=== PATIENT | male | born 1975 | race Caucasian/White ===

== ENCOUNTER 2017-03-01 13:24 | Emergency (ER) | payer MEDICAID ==
[~2017-03-01] VITALS: Ht 185.4 cm; Wt 100.0 kg
[~2017-03-01 13:24] MED LIST: CHLO.12%30 SSP; DOXY100T PO; IBUP800T23 PO; METR250 PO; PENI500T PO
[2017-03-01 13:27] VITALS: BP 129/79; PULSE 80; RESP 20; TEMP 98.9; O2SAT 97
--- NOTE | 2017-03-01 14:35 | PD ---
HPI Chief Complaint: Psychiatric Symptoms Time Seen by Provider: 14:30 Travel History International Travel<30 days: No Contact w/Intl Traveler<30days: No Traveled to known affect area: No History of Present Illness HPI 41-year-old male that presents to the ED for evaluation of momentary psych evaluation. Per patient she's been dealing with depression for the past 2-3 months. Per patient he recently lost his mom and dad. Per patient his been hard on him. He feels depressed and anhedonic. Per patient she feels like his out of his body and watching his life go along. The patient's symptoms seem to get better at night but during the day is hard for him to get up. He denies any drugs or alcohol. He does state that he has a history of depression in the past and last time he used to be on medications but he has not taken anything since 2002. He has no psychiatrist. He comes here voluntarily to get help. Patient has right next to him. Denies suicidal or homicidal ideation. PFSH Past Medical History Bipolar Disorder: Yes Anxiety: Yes Depression: Yes Diminished Hearing: No Musculoskeletal: Yes (RIGHT SHOULDER DISLOCATION, left hip fracture) Psychiatric: Yes (DEPRESSION) Social History Alcohol Use: Yes (DAILY) Tobacco Use: Yes (1PPD) Substance Use: No Allergies-Medications (Allergen,Severity, Reaction): Coded Allergies: No Known Allergies (Verified , 03/01/17) Reported Meds & Prescriptions Reported Meds & Active Scripts Active Peridex Oral Rinse (Chlorhexidine Gluconate) 0.12 % Kait 15 Ml SSP BID 10 Days Ibuprofen 800 Mg Tab 800 Mg PO Q8 PRN Pen Vk (Penicillin V Potassium) 500 Mg Tab 500 Mg PO QID Flagyl (Metronidazole) 250 Mg Tab 250 Mg PO TID Vibramycin (Doxycycline Hyclate) 100 Mg Cap 100 Mg PO BID Vibramycin (Doxycycline Hyclate) 100 Mg Cap 100 Mg PO BID Review of Systems Except as stated in HPI: all other systems reviewed are Neg Physical Exam Narrative GENERAL: SKIN: Warm and dry. HEAD: Atraumatic. Normocephalic. EYES: Pupils equal and round. No scleral icterus. No injection or drainage. ENT: No nasal bleeding or discharge. Mucous membranes pink and moist. Tongue is midline. No uvula deviation. NECK: Trachea midline. No JVD. CARDIOVASCULAR: Regular rate and rhythm. No murmurs, S3, S4. RESPIRATORY: No accessory muscle use. Clear to auscultation. Breath sounds equal bilaterally. GASTROINTESTINAL: Abdomen soft, non-tender, nondistended. Hepatic and splenic margins not palpable. MUSCULOSKELETAL: Extremities without clubbing, cyanosis, or edema. No obvious deformities. Full range of motion of the upper and lower external his bilaterally. 2+ pulses bilaterally. NEUROLOGICAL: Awake and alert. No obvious cranial nerve deficits. Motor grossly within normal limits. Five out of 5 muscle strength in the arms and legs. Normal speech. PSYCHIATRIC: Depressed mood and affect; insight and judgment normal. Data Data Last Documented VS Vital Signs Date Time Temp Pulse Resp B/P Pulse Ox O2 Delivery O2 Flow Rate FiO2 03/01/17 13:27 98.9 80 20 129/79 97 Room Air Orders Complete Blood Count With Diff (03/01/17 13:34) Comprehensive Metabolic Panel (03/01/17 13:34) Psych Screen (03/01/17 13:34) Drug Screen, Random Urine (03/01/17 13:34) Alcohol (Ethanol) (03/01/17 13:34) MDM Medical Decision Making Medical Screen Exam Complete: Yes Emergency Medical Condition: Yes Medical Record Reviewed: Yes Differential Diagnosis Depression versus suicidal ideation versus anxiety versus adjustment disorder versus mood disorder versus bipolar disorder versus schizophrenia versus paranoid disorder versus psychosis versus substance abuse versus alcohol abuse versus alcohol induced psychosis versus homicidality addition versus cutting versus personality disorder Narrative Course 41-year-old male that presents to the ED for evaluation of psychiatric evaluation. Patient was properly examined and was found to have signs and symptoms consistent with significant illness. Patient is here voluntarily and wants help for his depression. At this time labs will be drawn. Patient was medically clear. Okay to be seen by psych. Mental health screening was discussed with the patient. Diagnosis Primary Impression: Depression Qualified Code: F33.1 - Moderate episode of recurrent major depressive disorder Colt Mari Mar 01, 2017 14:35
[2017-03-01 14:42] LABS: AUTOMATED NEUTROPHIL # 4.7 TH/MM3 (1.8-7.7); BASOPHIL # 0.1 TH/MM3 (0-0.2); BASOPHIL % 0.8 % (0.0-2.0); EOSINOPHIL # 0.1 TH/MM3 (0-0.4); EOSINOPHIL % 0.9 % (0.0-4.0); HEMATOCRIT 37.6 % (39.0-51.0); HEMO FLAGS DIFF FINAL; LYMPH % 41.1 % (9.0-44.0); LYMPHOCYTE # 4.1 TH/MM3 (1.0-4.8); MEAN CELL VOLUME 87.4 FL (80.0-100.0); MEAN CORPUSCULAR HEMOGLOBIN 29.7 PG (27.0-34.0); NEUT % 48.2 % (16.0-70.0); PLATELET COUNT 205 TH/MM3 (150-450); RED CELL DISTRIBUTION WIDTH 14.1 % (11.6-17.2); WHITE BLOOD COUNT 9.9 TH/MM3 (4.0-11.0)
[2017-03-01 14:44] LABS: AMPHETAMINE, URINE NEG (NEG); BARBITURATES, URINE NEG (NEG); COCAINE, URINE NEG (NEG)
[2017-03-01 15:34] LABS: ALT (GPT) 27 U/L (12-78); ANION GAP 6 MEQ/L (5-15); AST (GOT) 17 U/L (15-37); BICARBONATE 26.2 MEQ/L (21.0-32.0); BLOOD UREA NITROGEN 15 MG/DL (7-18); CHLORIDE 110 MEQ/L (98-107); GLOMERULAR FILTRATION RATE 101 ML/MIN (>89); POTASSIUM 4.4 MEQ/L (3.5-5.1); SODIUM (NA) 142 MEQ/L (136-145)
[2017-03-01 15:36] LABS: ALKALINE PHOSPHATASE 89 U/L (45-117); TOTAL BILIRUBIN ADULT 0.4 MG/DL (0.2-1.0)
[2017-03-01 16:00] VITALS: BP 144/95; PULSE 75; RESP 16; TEMP 97.3; O2SAT 97
[2017-03-01 16:52] VITALS: BP 144/95; TEMP 98
== END 2017-03-01 16:55 | disposition home or self-care (01) ==
LOC: NEPD 13:24 → NEPJ 16:55
DX: F32.9 Major depressive disorder, single episode, unspecified (principal); F31.9 Bipolar disorder, unspecified; F41.9 Anxiety disorder, unspecified; F17.200 Nicotine dependence, unspecified, uncomplicated; Z79.899 Other long term (current) drug therapy
CPT/HCPCS: 80053; 80307; 85025; 99283

== ENCOUNTER 2017-07-16 11:41 | Emergency (ER) | payer MEDICAID, OTHER ==
[~2017-07-16] VITALS: Ht 185.4 cm; Wt 87.0 kg
[~2017-07-16 11:41] MED LIST changes: -CHLO.12%30 SSP; -DOXY100T PO; -IBUP800T23 PO; -METR250 PO; +NAPR-810 PO; -PENI500T PO; +ZYPR10TA PO
[2017-07-16 11:42] VITALS: BP 133/72; PULSE 81; RESP 20; TEMP 98.9; O2SAT 99
[2017-07-16] MEDS ORDERED: LORA1TAB12 PO (11:56)
[2017-07-16] MEDS ORDERED: SODIUM CHLOR 0.9% 1000 ML INJ 1,000 ML IV SCH (12:02)
[2017-07-16] MEDS ORDERED: ONDANSETRON HCL 4 MG/2 ML VIAL IVP ONE (12:15)
[2017-07-16] MEDS ORDERED: MORPHINE SULFATE 4 MG/ML INJ IV PUSH ONE (12:15)
[2017-07-16] MEDS ORDERED: SODIUM CHLORIDE 0.9% FLUSH 10 ML FLUSH IV FLUSH PRN (12:15)
[2017-07-16] MEDS ORDERED: FAMOTIDINE 20 MG/2 ML VIAL IV PUSH ONE (12:15)
[2017-07-16] MEDS ORDERED: PANTOPRAZOLE SODIUM 40 MG VIAL IVP ONE (12:15)
[2017-07-16 12:35] LABS: AUTOMATED NEUTROPHIL # 4.8 TH/MM3 (1.8-7.7); BASOPHIL % 0.4 % (0.0-2.0); EOSINOPHIL # 0.1 TH/MM3 (0-0.4); EOSINOPHIL % 0.8 % (0.0-4.0); HEMATOCRIT 38.6 % (39.0-51.0); HEMO FLAGS DIFF FINAL; LYMPH % 40.5 % (9.0-44.0); LYMPHOCYTE # 3.9 TH/MM3 (1.0-4.8); MEAN CELL VOLUME 87.7 FL (80.0-100.0); MEAN CORPUSCULAR HEMOGLOBIN 30.7 PG (27.0-34.0); MONO % 8.7 % (0.0-8.0); NEUT % 49.6 % (16.0-70.0); PLATELET COUNT 202 TH/MM3 (150-450); WHITE BLOOD COUNT 9.7 TH/MM3 (4.0-11.0)
--- NOTE | 2017-07-16 12:41 | PD ---
HPI Chief Complaint: GI Complaint Time Seen by Provider: 11:52 Travel History International Travel<30 days: No Contact w/Intl Traveler<30days: No Traveled to known affect area: No History of Present Illness HPI 41-year-old male that presents to the ED for evaluation of possible diverticulitis. Patient has a history of diverticulitis in the past and states that he was diagnosed as so about 2 months ago for Hospital. Per patient his been there twice since and states that he is not improved. Patient last took and dry, month ago. He continues to have sensation that he has to go and have a bowel movement but he does not. If he does he does have bloody stool. He denies any chest pain or shortness of breath. He states that he feels weak and anxious. He is not eating or drinking much per family member. He has not seen anybody else out of the hospital as he has no primary care doctor. He states that the pain is 10 out of 10and the lower abdomen and radiates to the back. He denies any numbness, tilling, weakness. No injuries. No history of IV drug abuse. Nothing seems to make it better. Denies any fevers chills or sweats. No chest pain or shortness of breath. Other medical issues at this time. PFSH Past Medical History Bipolar Disorder: Yes Anxiety: Yes Depression: Yes Diminished Hearing: No Musculoskeletal: Yes (RIGHT SHOULDER DISLOCATION, left hip fracture) Psychiatric: Yes (DEPRESSION) Social History Alcohol Use: No Tobacco Use: No Substance Use: No Allergies-Medications (Allergen,Severity, Reaction): Coded Allergies: No Known Allergies (Verified Allergy, Unknown, 07/16/17) Reported Meds & Prescriptions Reported Meds & Active Scripts Active Protonix (Pantoprazole Sodium) 40 Mg Tab 40 Mg PO DAILY Cipro Liq (Ciprofloxacin) 500 Mg/5 Ml Susp 500 Mg PO BID 10 Days Metronidazole 500 Mg Tab 500 Mg PO BID 10 Days Reported Lorazepam 1 Mg Tab 1 Mg PO BID PRN Review of Systems Except as stated in HPI: all other systems reviewed are Neg Physical Exam Narrative GENERAL: SKIN: Warm and dry. HEAD: Atraumatic. Normocephalic. EYES: Pupils equal and round. No scleral icterus. No injection or drainage. ENT: No nasal bleeding or discharge. Mucous membranes pink and moist. Tongue is midline. No uvula deviation. NECK: Trachea midline. No JVD. CARDIOVASCULAR: Regular rate and rhythm. No murmurs, S3, S4. RESPIRATORY: No accessory muscle use. Clear to auscultation. Breath sounds equal bilaterally. GASTROINTESTINAL: Abdomen soft, tender to palpation on the left lower quadrant, nondistended. Hepatic and splenic margins not palpable. MUSCULOSKELETAL: Extremities without clubbing, cyanosis, or edema. No obvious deformities. Full range of motion of the upper and lower extremities bilaterally. 2+ pulses bilaterally. NEUROLOGICAL: Awake and alert. No obvious cranial nerve deficits. Motor grossly within normal limits. Five out of 5 muscle strength in the arms and legs. Normal speech. PSYCHIATRIC: Appropriate mood and affect; insight and judgment normal. Data Data Last Documented VS Vital Signs Date Time Temp Pulse Resp B/P (MAP) Pulse Ox O2 Delivery O2 Flow Rate FiO2 07/16/17 11:42 98.9 81 20 133/72 (92) 99 Room Air Orders Orders Complete Blood Count With Diff (07/16/17 12:02) Comprehensive Metabolic Panel (07/16/17 12:02) Lipase (07/16/17 12:02) Prothrombin Time / Inr (Pt) (07/16/17 12:02) Act Partial Throm Time (Ptt) (07/16/17 12:02) Urinalysis - C+S If Indicated (07/16/17 12:02) Iv Access Insert/Monitor (07/16/17 12:02) Ecg Monitoring (07/16/17 12:02) Morphine Inj (Morphine Inj) (07/16/17 12:15) Ondansetron Inj (Zofran Inj) (07/16/17 12:15) Pantoprazole Inj (Protonix Inj) (07/16/17 12:15) Sodium Chlor 0.9% 1000 Ml Inj (Ns 1000 M (07/16/17 12:02) Sodium Chloride 0.9% Flush (Ns Flush) (07/16/17 12:15) Famotidine Inj (Pepcid Inj) (07/16/17 12:15) Ct Abd/Pel W Iv Contrast(Rout) (07/16/17 ) Iohexol 350 Inj (Omnipaque 350 Inj) (07/16/17 13:51) Ed Discharge Order (07/16/17 14:39) Labs Laboratory Tests Test 07/16/17 12:08 07/16/17 12:55 White Blood Count 9.7 TH/MM3 Red Blood Count 4.40 MIL/MM3 Hemoglobin 13.5 GM/DL Hematocrit 38.6 % Mean Corpuscular Volume 87.7 FL Mean Corpuscular Hemoglobin 30.7 PG Mean Corpuscular Hemoglobin Concent 35.0 % Red Cell Distribution Width 13.0 % Platelet Count 202 TH/MM3 Mean Platelet Volume 8.0 FL Neutrophils (%) (Auto) 49.6 % Lymphocytes (%) (Auto) 40.5 % Monocytes (%) (Auto) 8.7 % Eosinophils (%) (Auto) 0.8 % Basophils (%) (Auto) 0.4 % Neutrophils # (Auto) 4.8 TH/MM3 Lymphocytes # (Auto) 3.9 TH/MM3 Monocytes # (Auto) 0.8 TH/MM3 Eosinophils # (Auto) 0.1 TH/MM3 Basophils # (Auto) 0.0 TH/MM3 CBC Comment DIFF FINAL Differential Comment Prothrombin Time 10.9 SEC Prothromb Time International Ratio 1.1 RATIO Activated Partial Thromboplast Time 28.3 SEC Blood Urea Nitrogen 13 MG/DL Creatinine 0.95 MG/DL Random Glucose 101 MG/DL Total Protein 8.5 GM/DL Albumin 4.1 GM/DL Calcium Level 9.5 MG/DL Alkaline Phosphatase 107 U/L Aspartate Amino Transf (AST/SGOT) 14 U/L Alanine Aminotransferase (ALT/SGPT) 26 U/L Total Bilirubin 0.8 MG/DL Sodium Level 140 MEQ/L Potassium Level 4.0 MEQ/L Chloride Level 110 MEQ/L Carbon Dioxide Level 22.3 MEQ/L Anion Gap 8 MEQ/L Estimat Glomerular Filtration Rate 87 ML/MIN Lipase 101 U/L Urine Color YELLOW Urine Turbidity HAZY Urine pH 5.0 Urine Specific [place] 1.031 Urine Protein TRACE mg/dL Urine Glucose (UA) NEG mg/dL Urine Ketones NEG mg/dL Urine Occult Blood NEG Urine Nitrite NEG Urine Bilirubin NEG Urine Urobilinogen LESS THAN 2.0 MG/DL Urine Leukocyte Esterase NEG Urine RBC 1 /hpf Urine WBC 4 /hpf Urine Amorphous Sediment OCC Urine Mucus FEW /lpf Microscopic Urinalysis Comment CULT NOT INDICATED MDM Medical Decision Making Medical Screen Exam Complete: Yes Emergency Medical Condition: Yes Medical Record Reviewed: Yes Interpretation(s) CBC & BMP Diagram 07/16/17 12:08 Total Protein 8.5 H, Albumin 4.1, Calcium Level 9.5, Alkaline Phosphatase 107, Aspartate Amino Transf (AST/SGOT) 14 L, Alanine Aminotransferase (ALT/SGPT) 26, Total Bilirubin 0.8 UA negative coags WNL Last Impressions Abdomen/Pelvis CT 07/16/17 0000 Signed Impressions: Service Date/Time: Sunday, July 16, 2017 13:37 - CONCLUSION: 1. The above findings are diagnostic of a mild acute diverticulitis involving the proximal sigmoid colon. No abscess, free air, or free fluid is present. 2. Possible gallstones. Néstor Presley MD Differential Diagnosis Abdominal pain versus diverticulitis versus colitis versus C. difficile versus GI bleed versus acute on chronic Narrative Course 41-year-old male that presents to the ED for evaluation of possible diverticulitis. Patient was properly examined and was found to have signs and symptoms which appear to be consistent with likely diverticulitis. Labs and imaging were ordered. Imaging was ordered to rule out any sign of acute surgical emergency as patient continues to have symptoms and bleeding. Labs and imaging consistent with mild diverticulitis but no sign of acute surgical emergency. My attending Dr Ross evaluated the patient and agrees with plan. Patient requested liquid meds. patient will be started on flagyl, cipro andprotonix. Told to follow up with GI outpatient. See ED if worst. Diagnosis Primary Impression: Diverticulitis Patient Instructions: General Instructions, Narcotic given in the ED Additional Instructions: Take medication as prescribed. Liquid diet until better. Follow with PCP. See ED worsening symptoms. Med/Other Pt SpecificInfo: Prescription(s) given Scripts Pantoprazole (Protonix) 40 Mg Tab 40 MG PO DAILY for Reflux, #30 TAB 0 Refills Prov: Florian Ross MD 07/16/17 Ciprofloxacin Liq (Cipro Liq) 500 Mg/5 Ml Susp 500 MG PO BID for Infection for 10 Days, #100 ML 0 Refills Prov: Florian Ross MD 07/16/17 Metronidazole (Metronidazole) 500 Mg Tab 500 MG PO BID for Infection for 10 Days, #20 TAB 0 Refills Prov: Florian Ross MD 07/16/17 Disposition: 01 DISCHARGE HOME Condition: Stable Colt Mari Jul 16, 2017 12:41
[2017-07-16 12:48] LABS: APTT (PATIENT) 28.3 SEC (24.3-30.1); INTERNATIONAL NORMALIZED RATIO 1.1 RATIO; PROTHROMBIN TIME - PATIENT 10.9 SEC (9.8-11.6)
[2017-07-16 12:56] LABS: ANION GAP 8 MEQ/L (5-15); AST (GOT) 14 U/L (15-37); BICARBONATE 22.3 MEQ/L (21.0-32.0); BLOOD UREA NITROGEN 13 MG/DL (7-18); CHLORIDE 110 MEQ/L (98-107); GLOMERULAR FILTRATION RATE 87 ML/MIN (>89); SODIUM (NA) 140 MEQ/L (136-145)
[2017-07-16 12:59] LABS: ALKALINE PHOSPHATASE 107 U/L (45-117); ALT (GPT) 26 U/L (12-78); TOTAL BILIRUBIN ADULT 0.8 MG/DL (0.2-1.0)
[2017-07-16 13:15] LABS: BLOOD, URINE NEG (NEG); COMMENT (UR) CULT NOT INDICATED; CULTURE IF INDICATED CULT NOT INDICATED; GLUCOSE,URINE NEG (NEG); KETONE, URINE NEG (NEG); MUCUS URINE FEW /lpf (OCC); NITRITE,URINE NEG (NEG); URINE COLOR YELLOW (YELLW/STRAW)
[2017-07-16] MEDS ORDERED: IOHEXOL 350 MG/ML 10 ML VIAL (for RAD DIAG) IVCONTRAST ONE (13:51)
--- NOTE | 2017-07-16 14:14 | RADRPT ---
EXAM DATE/TIME: 07/16/2017 13:37 [facility] COMPARISON: No previous studies available for comparison. INDICATIONS : Constipation for two months, lower abdominal pain, blood in stool. IV CONTRAST: 67 cc Omnipaque 350 (iohexol) IV ORAL CONTRAST: No oral contrast ingested. RADIATION DOSE: 9.71 CTDIvol (mGy) MEDICAL HISTORY : Diverticulitis. SURGICAL HISTORY : None. ENCOUNTER: Initial ACUITY: 1 day PAIN SCALE: 6/10 LOCATION: abdomen TECHNIQUE: Volumetric scanning of the abdomen and pelvis was performed. Using automated exposure control and ad justment of the mA and/or kV according to patient size, radiation dose was kept as low as reasonably achievable to obtain optimal diagnostic quality images. DICOM format image data is available electro nically for review and comparison. FINDINGS: LOWER LUNGS: The visualized lower lungs are clear. LIVER: Homogeneous density without lesion. There is no dilation of the biliary tree. There is heterogeneou s density within the gallbladder lumen suggesting that noncalcified stones may be present. SPLEEN: Normal size without lesion. PANCREAS: Within normal limits. KIDNEYS: Normal in size and shape. There is no mass, stone or hydronephrosis. ADRENAL GLANDS: Within normal limits. VASCULAR: There is no aortic aneurysm. BOWEL/MESENTERY: The stomach and small bowel demonstrate no acute abnormality. There is no free intraperitoneal air o r fluid. Sigmoid diverticulosis is present and there is mild wall thickening and pericolonic inflamma tory change surrounding a short segment of proximal sigmoid colon. ABDOMINAL WALL: Within normal limits. RETROPERITONEUM: There is no lymphadenopathy. BLADDER: No wall thickening or mass. REPRODUCTIVE: Within normal limits. INGUINAL: There is no lymphadenopathy or hernia. MUSCULOSKELETAL: No acute abnormality. CONCLUSION: 1. The above findings are diagnostic of a mild acute diverticulitis involving the proximal sigmoid co isaac. No abscess, free air, or free fluid is present. 2. Possible gallstones. Néstor Presley MD on July 16, 2017 at 14:09 Board Certified Radiologist. This report was verified electronically.
[2017-07-16] MEDS ORDERED: CIPR500S2 PO (14:39)
[2017-07-16] MEDS ORDERED: METR1TAB76 PO (14:39)
[2017-07-16] MEDS ORDERED: PROT40TA PO (14:39)
[2017-07-16] MEDS ORDERED: VIST50CA PO (14:56)
--- NOTE | 2017-07-16 14:56 | PD ---
Data Data Last Documented VS Vital Signs Date Time Temp Pulse Resp B/P (MAP) Pulse Ox O2 Delivery O2 Flow Rate FiO2 07/16/17 11:42 98.9 81 20 133/72 (92) 99 Room Air Orders Orders Complete Blood Count With Diff (07/16/17 12:02) Comprehensive Metabolic Panel (07/16/17 12:02) Lipase (07/16/17 12:02) Prothrombin Time / Inr (Pt) (07/16/17 12:02) Act Partial Throm Time (Ptt) (07/16/17 12:02) Urinalysis - C+S If Indicated (07/16/17 12:02) Iv Access Insert/Monitor (07/16/17 12:02) Ecg Monitoring (07/16/17 12:02) Morphine Inj (Morphine Inj) (07/16/17 12:15) Ondansetron Inj (Zofran Inj) (07/16/17 12:15) Pantoprazole Inj (Protonix Inj) (07/16/17 12:15) Sodium Chlor 0.9% 1000 Ml Inj (Ns 1000 M (07/16/17 12:02) Sodium Chloride 0.9% Flush (Ns Flush) (07/16/17 12:15) Famotidine Inj (Pepcid Inj) (07/16/17 12:15) Ct Abd/Pel W Iv Contrast(Rout) (07/16/17 ) Iohexol 350 Inj (Omnipaque 350 Inj) (07/16/17 13:51) Ed Discharge Order (07/16/17 14:39) Labs Laboratory Tests Test 07/16/17 12:08 07/16/17 12:55 White Blood Count 9.7 TH/MM3 Red Blood Count 4.40 MIL/MM3 Hemoglobin 13.5 GM/DL Hematocrit 38.6 % Mean Corpuscular Volume 87.7 FL Mean Corpuscular Hemoglobin 30.7 PG Mean Corpuscular Hemoglobin Concent 35.0 % Red Cell Distribution Width 13.0 % Platelet Count 202 TH/MM3 Mean Platelet Volume 8.0 FL Neutrophils (%) (Auto) 49.6 % Lymphocytes (%) (Auto) 40.5 % Monocytes (%) (Auto) 8.7 % Eosinophils (%) (Auto) 0.8 % Basophils (%) (Auto) 0.4 % Neutrophils # (Auto) 4.8 TH/MM3 Lymphocytes # (Auto) 3.9 TH/MM3 Monocytes # (Auto) 0.8 TH/MM3 Eosinophils # (Auto) 0.1 TH/MM3 Basophils # (Auto) 0.0 TH/MM3 CBC Comment DIFF FINAL Differential Comment Prothrombin Time 10.9 SEC Prothromb Time International Ratio 1.1 RATIO Activated Partial Thromboplast Time 28.3 SEC Blood Urea Nitrogen 13 MG/DL Creatinine 0.95 MG/DL Random Glucose 101 MG/DL Total Protein 8.5 GM/DL Albumin 4.1 GM/DL Calcium Level 9.5 MG/DL Alkaline Phosphatase 107 U/L Aspartate Amino Transf (AST/SGOT) 14 U/L Alanine Aminotransferase (ALT/SGPT) 26 U/L Total Bilirubin 0.8 MG/DL Sodium Level 140 MEQ/L Potassium Level 4.0 MEQ/L Chloride Level 110 MEQ/L Carbon Dioxide Level 22.3 MEQ/L Anion Gap 8 MEQ/L Estimat Glomerular Filtration Rate 87 ML/MIN Lipase 101 U/L Urine Color YELLOW Urine Turbidity HAZY Urine pH 5.0 Urine Specific [place] 1.031 Urine Protein TRACE mg/dL Urine Glucose (UA) NEG mg/dL Urine Ketones NEG mg/dL Urine Occult Blood NEG Urine Nitrite NEG Urine Bilirubin NEG Urine Urobilinogen LESS THAN 2.0 MG/DL Urine Leukocyte Esterase NEG Urine RBC 1 /hpf Urine WBC 4 /hpf Urine Amorphous Sediment OCC Urine Mucus FEW /lpf Microscopic Urinalysis Comment CULT NOT INDICATED MDM Supervised Visit with JAVED: Yes Narrative Course The history, exam, and medical decision-making in the associated mid-level provider note were completed with my assistance. I reviewed and agree with the findings presented. I attest that I had a [id number] encounter with the patient on the same day, and personally performed and documented my assessment and findings in the medical record. *My assessment and Findings: 40-year-old man, recent episode of diverticulitis, here with ongoing abdominal pain and some tenderness. Looks overall well. Some stool changes. CT scan again shows some inflammation suggestive diverticulitis. Would recommend outpatient follow-up for further evaluation for IBD, antibiotic treatment. Diagnosis Primary Impression: Diverticulitis Patient Instructions: General Instructions, Diverticulitis (ED) Departure Forms: Tests/Procedures Additional Instruction: Take medication as prescribed. Liquid diet until better. Follow with PCP. See ED worsening symptoms. Scripts Pantoprazole (Protonix) 40 Mg Tab 40 MG PO DAILY for Reflux, #30 TAB 0 Refills Prov: Florian Ross MD 07/16/17 Ciprofloxacin Liq (Cipro Liq) 500 Mg/5 Ml Susp 500 MG PO BID for Infection for 10 Days, #100 ML 0 Refills Prov: Florian Ross MD 07/16/17 Metronidazole (Metronidazole) 500 Mg Tab 500 MG PO BID for Infection for 10 Days, #20 TAB 0 Refills Prov: Flroian Ross MD 07/16/17 Disposition: 01 DISCHARGE HOME Condition: Stable Florian Ross MD Jul 16, 2017 14:56
== END 2017-07-16 15:44 | disposition home or self-care (01) ==
LOC: NEPE 11:41
DX: K57.92 Diverticulitis of intestine, part unspecified, without perforation or abscess without bleeding (principal); F31.9 Bipolar disorder, unspecified; F41.9 Anxiety disorder, unspecified; Z79.899 Other long term (current) drug therapy
CPT/HCPCS: 74177; 80053; 81001; 83690; 85025; 85610; 85730; 96374; 96375; 99285; C9113; J2405; J7030; Q9967

== ENCOUNTER 2017-07-29 01:59 | Emergency (ER) | payer MEDICAID, OTHER ==
[~2017-07-29] VITALS: Ht 185.4 cm; Wt 86.5 kg
[~2017-07-29 01:59] MED LIST changes: +CIPR500S2 PO; +LORA1TAB12 PO; +METR1TAB76 PO; -NAPR-810 PO; +PROT40TA PO; +VIST50CA PO; -ZYPR10TA PO
[2017-07-29 02:02] VITALS: BP 182/99; PULSE 156; RESP 24; TEMP 98.7; O2SAT 100
[2017-07-29 02:06] VITALS: PULSE 167; RESP 32; O2SAT 100
[2017-07-29] MEDS ORDERED: ADENOSINE IV SOLN 3 MG/ML 2 ML VIAL ONE (02:09)
[2017-07-29] MEDS ORDERED: ADENOSINE IV SOLN 3 MG/ML 2 ML VIAL IV PUSH ONE ×2 (02:15)
[2017-07-29] MEDS ORDERED: ONDANSETRON HCL 4 MG/2 ML VIAL IV PUSH ONE (02:15)
[2017-07-29] MEDS ORDERED: SODIUM CHLOR 0.9% 1000 ML INJ 1,000 ML IV ONE ×2 (02:15)
[2017-07-29] MEDS ORDERED: SODIUM CHLORIDE 0.9% FLUSH 10 ML FLUSH IVF PRN (02:15)
[2017-07-29 02:24] VITALS: BP 152/88; PULSE 113; RESP 24; O2SAT 100
[2017-07-29 02:30] VITALS: BP 136/60; PULSE 86; RESP 20; O2SAT 100
[2017-07-29] MEDS ORDERED: LORazepam 2 MG/ML VIAL IV PUSH ONE (02:30)
--- NOTE | 2017-07-29 02:33 | PD ---
HPI Chief Complaint: Cardiac Complaint Time Seen by Provider: 02:10 Travel History International Travel<30 days: No Contact w/Intl Traveler<30days: No Traveled to known affect area: No History of Present Illness HPI 41-year-old male presents to the emergency department by private transportation and care of his significant other for evaluation of racing heart nausea shortness of breath and GI complaint times one month. Patient was recently seen in the emergency department and diagnosed with mild diverticulitis. Patient was started on Flagyl and Cipro. Patient states because of his upset stomach he has not been eating or drinking and feels very weak. Patient is very anxious and repeatedly states he feels like he is going to pass out. Patient's had no vomiting. Patient denies chest pain. Patient does complain of feeling short of breath and that his heart is racing. Patient denies any abdominal pain at this time. Patient denies substance use alcohol use or tobacco use. Patient is been seen numerous times in the emergency department for anxiety, dental issues, and musculoskeletal complaints. Patient also reports that he is out of his Ativan times one week after taking it daily times one month. PFSH Past Medical History Narrative Medical Bipolar anxiety depression shoulder dislocation diverticulitis hip fracture no tobacco use no alcohol use; nursing notes reviewed Bipolar Disorder: Yes Anxiety: Yes Depression: Yes Diminished Hearing: No Diverticulitis: Yes Musculoskeletal: Yes (RIGHT SHOULDER DISLOCATION, left hip fracture) Psychiatric: Yes (DEPRESSION) Tetanus Vaccination: > 5 Years Influenza Vaccination: Yes Social History Alcohol Use: No Tobacco Use: No Substance Use: No Allergies-Medications (Allergen,Severity, Reaction): Coded Allergies: No Known Allergies (Verified Allergy, Unknown, 07/16/17) Reported Meds & Prescriptions Reported Meds & Active Scripts Active No Active Prescriptions or Reported Medications Review of Systems Except as stated in HPI: all other systems reviewed are Neg Physical Exam Narrative GENERAL: Well-developed well-nourished very anxious male hyperventilating GCS 15 SKIN: Warm and dry. HEAD: Normocephalic. EYES: No scleral icterus. No injection or drainage. NECK: Supple, trachea midline. No JVD or lymphadenopathy. CARDIOVASCULAR: Increased Regular rate and rhythm without murmurs, gallops, or rubs. RESPIRATORY: Breath sounds equal bilaterally. No accessory muscle use. GASTROINTESTINAL: Abdomen soft, non-tender, nondistended. MUSCULOSKELETAL: No cyanosis, or edema. BACK: Nontender without obvious deformity. No CVA tenderness. Data Data Last Documented VS Vital Signs Date Time Temp Pulse Resp B/P (MAP) Pulse Ox O2 Delivery O2 Flow Rate FiO2 07/29/17 02:55 77 20 140/64 (89) 100 Nasal Cannula 2.00 07/29/17 02:02 98.7 Orders Orders Adenosine Inj (Adenocard Inj) (07/29/17 02:09) Electrocardiogram (07/29/17 02:10) Basic Metabolic Panel (Bmp) (07/29/17 02:10) Ckmb (Isoenzyme) Profile (07/29/17 02:10) Complete Blood Count With Diff (07/29/17 02:10) Magnesium (Mg) (07/29/17 02:10) Prothrombin Time / Inr (Pt) (07/29/17 02:10) Act Partial Throm Time (Ptt) (07/29/17 02:10) Troponin I (07/29/17 02:10) Chest, Single Ap (07/29/17 02:10) Ecg Monitoring (07/29/17 02:10) Bilateral Bp Monitoring (07/29/17 02:10) Iv Access Insert/Monitor (07/29/17 02:10) Oximetry (07/29/17 02:10) Oxygen Administration (07/29/17 02:10) Sodium Chloride 0.9% Flush (Ns Flush) (07/29/17 02:15) Adenosine Inj (Adenocard Inj) (07/29/17 02:15) Adenosine Inj (Adenocard Inj) (07/29/17 02:15) Sodium Chlor 0.9% 1000 Ml Inj (Ns 1000 M (07/29/17 02:15) Sodium Chlor 0.9% 1000 Ml Inj (Ns 1000 M (07/29/17 02:15) Ondansetron Inj (Zofran Inj) (07/29/17 02:15) Lorazepam Inj (Ativan Inj) (07/29/17 02:30) Urinalysis - C+S If Indicated (07/29/17 03:30) Ct Abd/Pel W Iv Contrast(Rout) (07/29/17 ) Iohexol 350 Inj (Omnipaque 350 Inj) (07/29/17 04:00) Labs Laboratory Tests Test 07/29/17 02:40 07/29/17 03:40 White Blood Count 8.5 TH/MM3 Red Blood Count 4.30 MIL/MM3 Hemoglobin 12.9 GM/DL Hematocrit 37.4 % Mean Corpuscular Volume 86.9 FL Mean Corpuscular Hemoglobin 30.0 PG Mean Corpuscular Hemoglobin Concent 34.5 % Red Cell Distribution Width 13.5 % Platelet Count 206 TH/MM3 Mean Platelet Volume 7.9 FL Neutrophils (%) (Auto) 42.1 % Lymphocytes (%) (Auto) 49.5 % Monocytes (%) (Auto) 6.9 % Eosinophils (%) (Auto) 0.9 % Basophils (%) (Auto) 0.6 % Neutrophils # (Auto) 3.6 TH/MM3 Lymphocytes # (Auto) 4.2 TH/MM3 Monocytes # (Auto) 0.6 TH/MM3 Eosinophils # (Auto) 0.1 TH/MM3 Basophils # (Auto) 0.0 TH/MM3 CBC Comment DIFF FINAL Differential Comment Prothrombin Time 11.2 SEC Prothromb Time International Ratio 1.1 RATIO Activated Partial Thromboplast Time 24.7 SEC Blood Urea Nitrogen 14 MG/DL Creatinine 0.97 MG/DL Random Glucose 135 MG/DL Calcium Level 9.4 MG/DL Magnesium Level 2.1 MG/DL Sodium Level 144 MEQ/L Potassium Level 3.8 MEQ/L Chloride Level 115 MEQ/L Carbon Dioxide Level 19.0 MEQ/L Anion Gap 10 MEQ/L Estimat Glomerular Filtration Rate 84 ML/MIN Total Creatine Kinase 90 U/L Troponin I LESS THAN 0.02 NG/ML Urine Color YELLOW Urine Turbidity CLEAR Urine pH 6.5 Urine Specific [place] 1.019 Urine Protein NEG mg/dL Urine Glucose (UA) NEG mg/dL Urine Ketones NEG mg/dL Urine Occult Blood NEG Urine Nitrite NEG Urine Bilirubin NEG Urine Urobilinogen LESS THAN 2.0 MG/DL Urine Leukocyte Esterase NEG Urine RBC 1 /hpf Urine WBC 2 /hpf Urine Hyaline Casts 17 /lpf Urine Granular Casts 27 /lpf Urine Mucus FEW /lpf Microscopic Urinalysis Comment CULT NOT INDICATED MDM Medical Decision Making Medical Screen Exam Complete: Yes Emergency Medical Condition: Yes Medical Record Reviewed: Yes Interpretation(s) Last Impressions Chest X-Ray 07/29/17 0210 Signed Impressions: Service Date/Time: July 02:43 - CONCLUSION: No acute disease. Néstor Cintron MD CBC & BMP Diagram 07/29/17 02:40 Calcium Level 9.4, Magnesium Level 2.1 Vital Signs Date Time Temp Pulse Resp B/P (MAP) Pulse Ox O2 Delivery O2 Flow Rate FiO2 07/29/17 02:55 77 20 140/64 (89) 100 Nasal Cannula 2.00 07/29/17 02:45 86 20 141/85 (103) 100 Nasal Cannula 2.00 07/29/17 02:30 86 20 136/60 (85) 100 Nasal Cannula 2.00 07/29/17 02:25 100 Nasal Cannula 2.00 07/29/17 02:24 113 24 152/88 (109) 100 Nasal Cannula 2.00 07/29/17 02:06 167 32 100 07/29/17 02:02 98.7 156 24 182/99 (126) [address] abd/pel: CONCLUSION: Colonic diverticula without significant inflammation. Néstor Cintron MD on July 29, 2017 at 4:25 Board Certified Radiologist. This report was verified electronically. Differential Diagnosis SVT, sinus tachycardia, anxiety, ACS, AR, PE, perforated viscus, dehydration, arrhythmia, elect light disturbance, thyroid dysfunction, substance ingestion, benzodiazepine withdrawal Narrative Course Patient placed on package dyer where he is in a regular rapid rhythm without visible P waves consistent with SVT rate of 160; Adenocard ordered to be administered IV; IV access obtained vagal maneuvers administered IV fluids initiated patient starting to decrease heart rate without intervention of Adenocard medication. EKG obtained and patient is now in regular rhythm with sinus tachycardia with a rate of 120 no acute injury pattern change. Adenocard is canceled and not administered. Complaint of nausea patient administered Zofran 4 mg IV. For anxiety patient administered Ativan 1 mg IV. For hydration patient given 2 L of normal saline wide open. Specimens collected and sent for resulting. Patient feels well vital signs are normal range good response to IV fluid hydration lab values grossly within normal limits; CT reveals no acute abnormality; rectal exam performed by me no external hemorrhoids fissure normal sphincter tone is noted scant amount of brown mucus on exam glove is negative for blood. Patient stable for outpatient management and close follow-up with his primary care provider recommend he keep appointment with lead custodian as planned and recommend follow-up [facility] regarding his anxiety [facility] Point of Care Internal Pos. & Neg. Controls: Passed Fecal Specimen Occult Blood: Negative Diagnosis Primary Impression: Tachycardia Additional Impressions: Anxiety attack Medication refill Diverticulosis Referrals: C[facility] Inspector call for appointment Primary Care Physician 2 days [facility] 1 day Patient Instructions: General Instructions Additional Instructions: Increase fluid hydration Follow clear liquid diet for next 12-24 hours advance as tolerated to bland/ Matthew diet then regular diet adding probiotics to dietary intake Take medication as prescribed as needed for anxiety Follow-up with your primary care provider call office in a.m.; follow-up with lead custodian; recommend follow-up with [facility] facility Return to the emergency department for a concerns or change in condition Take acetaminophen/Tylenol as needed for minor pain or for fever 100.4F or greater Med/Other Pt SpecificInfo: Prescription(s) given Scripts Alprazolam (Xanax) 0.5 Mg Tab 0.5 MG PO Q8H Y for ANXIETY, #7 TAB 0 Refills Prov: Jessica Carson MD 07/29/17 Disposition: 01 DISCHARGE HOME Condition: Stable Jessica Carson MD Jul 29, 2017 02:33
[2017-07-29 02:45] VITALS: BP 141/85; PULSE 86; RESP 20; O2SAT 100
[2017-07-29 02:49] LABS: AUTOMATED NEUTROPHIL # 3.6 TH/MM3 (1.8-7.7); BASOPHIL % 0.6 % (0.0-2.0); EOSINOPHIL # 0.1 TH/MM3 (0-0.4); EOSINOPHIL % 0.9 % (0.0-4.0); HEMATOCRIT 37.4 % (39.0-51.0); HEMOGLOBIN 12.9 GM/DL (13.0-17.0); LYMPH % 49.5 % (9.0-44.0); LYMPHOCYTE # 4.2 TH/MM3 (1.0-4.8); MEAN CELL VOLUME 86.9 FL (80.0-100.0); MEAN CORPUSCULAR HGB CONC 34.5 % (32.0-36.0); MEAN PLATELET VOLUME 7.9 FL (7.0-11.0); MONO % 6.9 % (0.0-8.0); MONOCYTE # 0.6 TH/MM3 (0-0.9); NEUT % 42.1 % (16.0-70.0); PLATELET COUNT 206 TH/MM3 (150-450); RED CELL DISTRIBUTION WIDTH 13.5 % (11.6-17.2); WHITE BLOOD COUNT 8.5 TH/MM3 (4.0-11.0)
[2017-07-29 02:55] VITALS: BP 140/64; PULSE 77; RESP 20; O2SAT 100
[2017-07-29 03:00] LABS: INTERNATIONAL NORMALIZED RATIO 1.1 RATIO; PROTHROMBIN TIME - PATIENT 11.2 SEC (9.8-11.6)
--- NOTE | 2017-07-29 03:15 | RADRPT ---
EXAM DATE/TIME: 07/29/2017 02:43 [facility] COMPARISON: No previous studies available for comparison. INDICATIONS : Left lower quadrant abdominal pain. MEDICAL HISTORY : None. SURGICAL HISTORY : None. ENCOUNTER: Initial ACUITY: 1 day PAIN SCORE: 0/10 LOCATION: Bilateral chest FINDINGS: A single view of the chest demonstrates the lungs to be symmetrically aerated without evidence of mas s, infiltrate or effusion. The cardiomediastinal contours are unremarkable. Osseous structures are intact. CONCLUSION: No acute disease. Néstor Cintron MD on July 29, 2017 at 3:13 Board Certified Radiologist. This report was verified electronically.
[2017-07-29 03:18] LABS: BLOOD UREA NITROGEN 14 MG/DL (7-18); CALCIUM 9.4 MG/DL (8.5-10.1); CHLORIDE 115 MEQ/L (98-107); CREATININE 0.97 MG/DL (0.60-1.30); GLOMERULAR FILTRATION RATE 84 ML/MIN (>89); GLUCOSE,RANDOM 135 MG/DL (74-106); MAGNESIUM 2.1 MG/DL (1.5-2.5); SODIUM (NA) 144 MEQ/L (136-145)
[2017-07-29 03:22] LABS: TROPONIN I LESS THAN 0.02 NG/ML (0.02-0.05)
[2017-07-29 03:58] LABS: BILIRUBIN, URINE NEG (NEG); BLOOD, URINE NEG (NEG); GLUCOSE,URINE NEG (NEG); HYALINE CAST, URINE 17 /lpf (RARE); KETONE, URINE NEG (NEG); MUCUS URINE FEW /lpf (OCC); NITRITE,URINE NEG (NEG); PH, URINE 6.5 (5.0-8.5); URINE COLOR YELLOW (YELLW/STRAW); URINE LEUKOCYTE ESTERASE NEG (NEG)
[2017-07-29] MEDS ORDERED: IOHEXOL 350 MG/ML 10 ML VIAL (for RAD DIAG) IVCONTRAST ONE (04:00)
--- NOTE | 2017-07-29 04:30 | RADRPT ---
EXAM DATE/TIME: 07/29/2017 03:41 [facility] COMPARISON: CT ABDOMEN & PELVIS W CONTRAST, July 16, 2017, 13:37. INDICATIONS : Abdomen pain. IV CONTRAST: 94 cc Omnipaque 350 (iohexol) IV ORAL CONTRAST: No oral contrast ingested. RADIATION DOSE: 7.81 CTDIvol (mGy) MEDICAL HISTORY : Diverticulitis. SURGICAL HISTORY : None. ENCOUNTER: Initial ACUITY: 1 day PAIN SCALE: 5/10 LOCATION: Bilateral abdomen TECHNIQUE: Volumetric scanning of the abdomen and pelvis was performed. Using automated exposure control and ad justment of the mA and/or kV according to patient size, radiation dose was kept as low as reasonably achievable to obtain optimal diagnostic quality images. DICOM format image data is available electro nically for review and comparison. FINDINGS: LOWER LUNGS: The visualized lower lungs are clear. LIVER: Homogeneous density without lesion. There is no dilation of the biliary tree. No calcified gallston es. SPLEEN: Normal size without lesion. PANCREAS: Within normal limits. KIDNEYS: Normal in size and shape. There is no mass, stone or hydronephrosis. ADRENAL GLANDS: Within normal limits. VASCULAR: There is no aortic aneurysm. BOWEL/MESENTERY: There are colonic diverticula particularly in the sigmoid region. Significant surrounding inflammator y changes no longer seen. ABDOMINAL WALL: Within normal limits. RETROPERITONEUM: There is no lymphadenopathy. BLADDER: No wall thickening or mass. REPRODUCTIVE: Within normal limits. INGUINAL: There is no lymphadenopathy or hernia. MUSCULOSKELETAL: Within normal limits for patient age. CONCLUSION: Colonic diverticula without significant inflammation. Néstor Cintron MD on July 29, 2017 at 4:25 Board Certified Radiologist. This report was verified electronically.
[2017-07-29] MEDS ORDERED: ALPR.5 PO (04:47)
--- NOTE | 2017-07-29 13:29 | EKG ---
Date Performed: 07/29/2017 Time Performed: 02:21:19 PTAGE: 41 years EKG: SINUS TACHYCARDIA BORDERLINE RIGHT AXIS DEVIATION NONSPECIFIC ST & T-WAVE ABNORMALITY ABNOR MAL RHYTHM ECG NO PREVIOUS TRACING DOCTOR: Raman Vargas Interpretating Date/Time 07/29/2017 13:27:13
== END 2017-07-29 05:05 | disposition home or self-care (01) ==
LOC: NEPC 01:59
DX: R00.0 Tachycardia, unspecified (principal); F41.1 Generalized anxiety disorder; R11.0 Nausea; R06.02 Shortness of breath; K57.90 Diverticulosis of intestine, part unspecified, without perforation or abscess without bleeding; R94.31 Abnormal electrocardiogram [ECG] [EKG]; Z76.0 Encounter for issue of repeat prescription
CPT/HCPCS: 71010; 74177; 80048; 81001; 82550; 83735; 84484; 85025; 85610; 85730; 93005; 96361; 96374; 99285; J2405; J7030; Q9967; J0153